=== PATIENT | female | born 1995 | race Two or more races ===

== ENCOUNTER 2024-10-16 19:02 | Emergency (ER) | payer OTHER ==
[2024-10-16 19:17] VITALS: BP 134/86; PULSE 96; RESP 18; TEMP 98.1; BMI 26.2
[2024-10-16] MEDS ORDERED: LIDOCAINE 4% PATCH TP ONE (20:11)
[2024-10-16] MEDS ORDERED: ACETAMINOPHEN 500 MG TABLET (FP) ONE (20:12)
[2024-10-16] MEDS ORDERED: IBUPROFEN 400 MG TABLET (FP) PO ONE (20:13)
[2024-10-16] MEDS: LIDOCAINE 5% TOPICAL PATCH TP ONE (20:16)
[2024-10-16] MEDS: ACETAMINOPHEN 500 MG TABLET (FP) PO ONE (20:17)
[2024-10-16] MEDS: IBUPROFEN 400 MG TABLET (FP) PO ONE (20:17)
[2024-10-17] MEDS ORDERED: LIDOCAINE PATCH REMOVAL MC SCH (08:00)
== END 2024-10-16 20:17 | disposition home or self-care (01) ==
LOC: JERFT 19:02
DX: M54.2 Cervicalgia (principal); R51.9 Headache, unspecified; V49.40XA Driver injured in collision with unspecified motor vehicles in traffic accident, initial encounter; Y92.410 Unspecified street and highway as the place of occurrence of the external cause
CPT/HCPCS: 99283-25